=== PATIENT | male | born 1995 | race Caucasian/White ===

== ENCOUNTER 2021-05-04 04:45 | Emergency (ER) | payer OTHER ==
[2021-05-04 05:24] LABS: BASOPHIL 0.1 % (0-2); EOSINOPHIL 0 % (0-5); HGB 14.7 g/dl (13.2-18.0); LYMPHOCYTE 5.7 % (15-48); MCH 27.7 pg (25.0-31.0); MCHC 32.7 g/dL (32.0-36.0); MCV 84.9 fL (78.0-100.0); MONOCYTE 9.7 % (0-12); MPV 11.9 fL (6.0-9.5); NEUTROPHIL 83.9 % (41-80); NRBC 0; PLT 235 K/uL (150-400); RDW 12.1 % (11.5-14.0); WBC 10.5 K/uL (4.0-10.5)
[2021-05-04 05:37] LABS: BILIRUBIN - TOTAL 0.7 mg/dL (0.2-1.0); BUN/CREAT RATIO (CALC) 14.1 RATIO; CREATININE 0.99 mg/dL (0.67-1.17); GLOBULIN (CALCULATION) 3.6 g/dL; POTASSIUM 3.9 mmol/L (3.5-5.1); TOTAL PROTEIN 7.6 g/dL (6.4-8.2)
[2021-05-04 05:43] LABS: PRO-BNP 194 pg/mL (<125)
[2021-05-04 07:00] LABS: BILIRUBIN 1+ mg/dL (NEGATIVE); BLOOD NEGATIVE Ery/uL (NEGATIVE); CLARITY CLEAR (CLEAR); COLOR YELLOW (YELLOW); GLUCOSE (U) TRACE mg/dL (NORMAL); LEUKOCYTES NEGATIVE Leu/uL (NEGATIVE); NITRITE NEGATIVE (NEGATIVE); PROTEIN TRACE (LOW) mg/dL (NEGATIVE); pH 7.5 (5.0-9.0)
[2021-05-04] MEDS ORDERED: PHENERGAN25 M1 PO (07:00)
[2021-05-04 07:08] LABS: BACTERIA TRACE; MUCOUS MODERATE; URINARY WBC RARE
== END 2021-05-04 08:05 | disposition home or self-care (01) ==
LOC: FER 04:45
PROVIDERS: Emergency Medicine Emergency Medical Services
DX: E86.0 Dehydration (principal); R11.2 Nausea with vomiting, unspecified; Z87.891 Personal history of nicotine dependence
CPT/HCPCS: 36415; 71045; 74018; 80053; 81001; 83605; 83690; 83880; 84145; 84484; 85025; J1885; J2405; J2550; J7120